=== PATIENT | female | born 1985 | race Caucasian/White ===

== ENCOUNTER 2016-10-31 08:26 | Day surgery (SDC) | payer MEDICARE, MEDICAID ==
[2016-10-25 11:03] LABS: HEMATOCRIT 39.8 % (36.0-47.0); HEMOGLOBIN 12.8 g/dL (12.0-15.5); HGB HCT DIFFERENCE -1.4; MEAN CORPUSCULAR HEMOGLOBIN 26.5 pg (27.0-33.4); MEAN CORPUSCULAR VOLUME 83 fl (80-97); RED BLOOD COUNT 4.82 10^6/uL (3.72-5.28); RED CELL DISTRIBUTION WIDTH 14.6 % (11.5-14.0); WHITE BLOOD COUNT 11.4 10^3/uL (4.0-10.5)
[2016-10-25 11:21] LABS: ANION GAP 12 (5-19); BLOOD UREA NITROGEN 7 mg/dL (7-20); CALCIUM 9.6 mg/dL (8.4-10.2); CARBON DIOXIDE 24 mmol/L (22-30); CHLORIDE 103 mmol/L (98-107); CREATININE RESULT 0.62 mg/dL (0.52-1.25); GLUCOSE 89 mg/dL (75-110); POTASSIUM 4.4 mmol/L (3.6-5.0); SODIUM 139.2 mmol/L (137-145)
[~2016-10-31 08:26] MED LIST: BUPIVACAINE HCL 0.25 % INJ/PF (2.5 MG/1 ML) 30 ML VIAL ONE; CEFAZOLIN 1 GM/D5W RTU 1 GM/50 ML RTUPB IV PRN; LACTATED RINGERS 1000 ML IV PRN; LIDOCAINE 0.5% INJ-PF (5 MG/ML) 50 ML SDV SUBCUT PRN
[2016-10-31] MEDS ORDERED: LIDOCAINE 2% INJ-PF (20 MG/ML) 10 ML AMPUL ONE (10:23)
[2016-10-31] MEDS ORDERED: DEXAMETHASONE SOD PHOSPHATE INJ 4 MG/1 ML VIAL ONE (10:23)
[2016-10-31] MEDS ORDERED: SUCCINYLCHOLINE CHLORIDE INJ 200 MG/10 ML VIAL ONE (10:23)
[2016-10-31] MEDS ORDERED: METOCLOPRAMIDE HCL INJ/PF 10 MG/2 ML SDV ONE (10:23)
[2016-10-31] MEDS ORDERED: KETOROLAC TROMETHAMINE 60 MG/2 ML SDV ONE (10:23)
[2016-10-31] MEDS ORDERED: ONDANSETRON HCL INJ/PF 4 MG/2 ML SDV ONE (10:23)
[2016-10-31] MEDS ORDERED: FENTANYL CITRATE INJ/PF 250 MCG/5 ML AMPULE ONE (12:36)
[2016-10-31] MEDS ORDERED: MIDAZOLAM 2 MG/2 ML INJ ONE (12:36)
[2016-10-31] MEDS ORDERED: DEXMEDETOMIDINE INJ 80 MCG/20 ML VIAL IV ONE (12:37)
[2016-10-31] MEDS ORDERED: ACETAMINOPHEN 100 ML IV ONE (12:37)
[2016-10-31] MEDS ORDERED: PROPOFOL INJ 200 MG/20 ML VIAL IV ONE (12:37)
[2016-10-31] MEDS ORDERED: EPHEDRINE SULFATE INJ 50 MG/1 ML AMPULE ONE (12:37)
[2016-10-31] MEDS ORDERED: MORPHINE SULFATE 10 MG/ML INJ IV PRN (13:29)
[2016-10-31] MEDS ORDERED: ONDANSETRON HCL INJ/PF 4 MG/2 ML SDV IV PRN ×2 (13:29→15:00)
[2016-10-31] MEDS ORDERED: DIPHENHYDRAMINE HCL 50 MG/ML VIAL IV PRN (13:29)
[2016-10-31] MEDS ORDERED: PROMETHAZINE HCL INJ 25 MG/1 ML VIAL IV PRN ×2 (13:29)
[2016-10-31] MEDS ORDERED: FENTANYL CITRATE INJ/PF 100 MCG/2 ML AMPUL IV PRN ×3 (13:29)
[2016-10-31] MEDS ORDERED: MEPERIDINE HCL/PF INJ 25 MG/1 ML DISP.SYRIN IV PRN (13:29)
[2016-10-31] MEDS ORDERED: RINGERS SOLUTION,LACTATED 1,000 ML IV PRN (15:00)
[2016-10-31] MEDS ORDERED: OXYCODONE-ACETAMINOPHEN 5-325 MG TABLET PO PRN (15:00)
--- NOTE | 2016-10-31 15:00 | PDOC DISCHARGE SUMMARY ---
Discharge Summary (SDC) - Discharge Final Diagnosis: Bilateral breast masses Date of Surgery: 10/31/16 Discharge Date: 10/31/16 Condition: Good Treatment or Instructions: Underwent bilateral breast abscesses excision. May discharge the patient home when met discharge criteria. Follow-up with me next week. May shower tomorrow night. Do not remove Steri-Strips. Where firm fitting bra and avoid strenuous activity. Prescriptions: Oxycodone HCl/Acetaminophen [Percocet 5-325 mg Tablet] 1 tab PO ASDIR PRN #25 tablet PRN Reason: Discharge Diet: As Tolerated Discharge Activity: Activity As Tolerated - Stay active but avoid strenuous activity. Report the Following to Your Physician Immediately: Fever over 101 Degrees, Unusual Bleeding, Redness, Drainage-Foul Smelling
--- NOTE | 2016-10-31 16:02 | Operative Report ---
Operative Report DATE OF SURGERY: 10/31/16 PREOPERATIVE DIAGNOSIS: Bilateral breast masses. POSTOPERATIVE DIAGNOSIS: Bilateral breast masses. OPERATION: Excisional biopsy of right breast mass, excisional biopsy of 3 left breast masses. SURGEON: AD FULLER ANESTHESIA: GA TISSUE REMOVED OR ALTERED: 4.5 cm right breast mass at 10 o'clock position. 3.5 cm left breast mass at 10 o'clock position. 2.6 cm left breast mass at 3 o' clock position. 1.2 cm left breast mass at deep 2 o'clock position. COMPLICATIONS: None ESTIMATED BLOOD LOSS: minimal INTRAOPERATIVE FINDINGS: Well-circumscribed the firm smooth mass located at the right breast at the 10 o'clock position, similar feeling mass at the left breast at the 10 o'clock position. Similar but much smaller mass at the left breast at 2 o'clock position. Left breast 3 o'clock position multilobulated firm mass. PROCEDURE: Informed consent was obtained. Patient was brought to the operating room and placed on the operating table in the supine position. After satisfactory induction of general anesthesia patient's bilateral breasts were prepped and draped in usual sterile fashion. At the patient's right breast at the 10 o' clock position there was a 4.5 cm palpable smooth mass a incision was made overlying this lump dissection was carried down and this mass was shelled out without difficulty it was removed intact and submitted to pathology. Hemostasis was achieved with electrocautery the wound was closed with deep dermal interrupted Vicryl sutures followed by running subcuticular Prolene pullout suture. Of note all of the wounds were closed in this fashion. Patient had a palpable similar feeling 3.5 cm lesion at the 10 o'clock position of the left breast. Transverse incision was made overlying this mass and this mass was shelled out without difficulty. Hemostasis appeared excellent the wound was closed as above. Patient had a palpable 2.6 cm mass at the 3 o'clock position of the left breast. Transverse incision was made and this mass was shelled out although it did appear to be attached to deeper fibrous tissue which was removed in continuity with the well-circumscribed but very lobulated complex appearing mass. All of the lesion was entirely excised. But again this lesion appeared different from the other breast masses in its complex multi lobularity with almost grapelike cluster appearance at certain portions of it. Just superior to this mass, at the 2 o'clock position there was a smaller 1.2 cm well- circumscribed the mass which was shelled out without difficulty. Hemostasis appeared excellent. And the wound was closed as above. Marcaine was injected at all of the operative sites at the beginning of the case. Patient tolerated procedure well with no apparent competitions and was taken to the recovery area in stable condition.
[2016-10-31 16:41] VITALS: BP 119/78
== END 2016-10-31 16:42 | disposition home or self-care (01) ==
LOC: OROUT 08:26
PROVIDERS: ATTEND Surgery
PROC: 0HBV0ZX Excision of Bilateral Breast, Open Approach, Diagnostic (ICD-10-PCS; principal; 2016-10-31 11:30)
DX: D24.1 Benign neoplasm of right breast (principal); D24.2 Benign neoplasm of left breast; N60.12 Diffuse cystic mastopathy of left breast; N60.11 Diffuse cystic mastopathy of right breast; I87.2 Venous insufficiency (chronic) (peripheral); E66.9 Obesity, unspecified; Z79.899 Other long term (current) drug therapy; Z68.41 Body mass index [BMI] 40.0-44.9, adult
CPT/HCPCS: 36415; 85027; 81025; 80048; 88305 ×2; 88342; 19120; J2250; J0690; J1100; J1885; J3010; J2765; J0330; J2405; J2704; J3490 ×2; J0131; 400

== ENCOUNTER → 2016-11-06 | Outpatient (CLI) | payer MEDICARE, MEDICAID | LOC: SP 10:06 | PROVIDERS: ATTEND Surgery | DX: M79.606 Pain in leg, unspecified (principal); M79.89 Other specified soft tissue disorders | CPT/HCPCS: 93970 ==

== ENCOUNTER 2017-01-19 14:44 | Emergency (ER) | payer MEDICARE, MEDICAID ==
--- NOTE | 2017-01-19 15:48 | ER Document Report ---
ED Medical Screen (RME) - General Chief Complaint: Palpitations Stated Complaint: CHEST PAIN Time Seen by Provider: 01/19/17 15:39 Notes: The patient is a 31-year-old female, past medical history anxiety, presents with 2 days of intermittent feeling like her heart is racing. She says episode last done a minute and then resolve without any change. She had another episode while in the waiting room. Also with shortness of breath during these episodes. PE: NAD. RRR. CTAB I have greeted and performed a rapid initial assessment of this patient. A comprehensive ED assessment and evaluation of the patient, analysis of test results and completion of the medical decision making process will be conducted by additional ED providers. TRAVEL OUTSIDE OF THE [place] IN LAST 30 DAYS: No - Related Data Allergies/Adverse Reactions: No Known Allergies Allergy (Verified 01/19/17 15:01) Past Medical History - Social History Chew tobacco use (# tins/day): No Drug Abuse: None - Past Medical History Cardiac Medical History: Reports: Hx Coronary Artery Disease - high cholesterol Denies: Hx Heart Attack, Hx Hypertension Pulmonary Medical History: Denies: Hx Asthma, Hx Bronchitis, Hx COPD, Hx Pneumonia Neurological Medical History: Denies: Hx Cerebrovascular Accident, Hx Seizures Renal/ Medical History: Denies: Hx Peritoneal Dialysis Musculoskeltal Medical History: Denies Hx Arthritis - Immunizations Hx Diphtheria, Pertussis, Tetanus Vaccination: Yes Physical Exam - Vital signs Vitals: Temp Pulse Resp BP Pulse Ox 98.1 F 79 16 124/77 97 01/19/17 15:00 01/19/17 15:00 01/19/17 15:00 01/19/17 15:00 01/19/17 15:00 Course - Vital Signs Vital signs: Temp Pulse Resp BP Pulse Ox 98.1 F 79 16 124/77 97 01/19/17 15:00 01/19/17 15:00 01/19/17 15:00 01/19/17 15:00 01/19/17 15:00
[2017-01-19 16:25] LABS: ABSOLUTE EOSINOPHILS # (AUTO) 0.1 10^3/uL (0.0-0.6); ABSOLUTE LYMPHOCYTES (AUTO) 2.8 10^3/uL (0.5-4.7); ABSOLUTE MONOCYTES (AUTO) 0.7 10^3/uL (0.1-1.4); BASOPHILS % (AUTO) 0.5 % (0-2); EOSINOPHILS % (AUTO) 0.5 % (0-6); HEMATOCRIT 39.9 % (36.0-47.0); HEMOGLOBIN 12.7 g/dL (12.0-15.5); HGB HCT DIFFERENCE -1.8; LYMPHOCYTES % (AUTO) 26.5 % (13-45); MEAN CORPUSCULAR HEMOGLOBIN 26.3 pg (27.0-33.4); MEAN CORPUSCULAR HGB CONC 31.9 g/dL (32.0-36.0); MEAN CORPUSCULAR VOLUME 83 fl (80-97); MONOCYTES % (AUTO) 6.4 % (3-13); RED BLOOD COUNT 4.82 10^6/uL (3.72-5.28); RED CELL DISTRIBUTION WIDTH 15.1 % (11.5-14.0); SEGMENTED NEUTROPHILS % (AUTO) 66.1 % (42-78); WHITE BLOOD COUNT 10.5 10^3/uL (4.0-10.5)
[2017-01-19 16:45] LABS: ANION GAP 9 (5-19); BLOOD UREA NITROGEN 11 mg/dL (7-20); CALCIUM 9.8 mg/dL (8.4-10.2); CARBON DIOXIDE 25 mmol/L (22-30); CHLORIDE 105 mmol/L (98-107); CREATINE KINASE 72 U/L (30-135); CREATININE RESULT 0.63 mg/dL (0.52-1.25); GLUCOSE 86 mg/dL (75-110); POTASSIUM 4.6 mmol/L (3.6-5.0); SODIUM 139.3 mmol/L (137-145)
--- NOTE | 2017-01-19 17:13 | EKG REPORT ---
SEVERITY:- BORDERLINE ECG - SINUS RHYTHM BORDERLINE Q WAVES IN INFERIOR LEADS INFERIOR Q WAVES, PROBABLY NORMAL VARIATION : Confirmed by: Rebeka Randhawa MD 19-Jan-2017 17:12:10
--- NOTE | 2017-01-19 18:24 | ER Document Report ---
ED Cardiac - General Mode of Arrival: Ambulatory Information source: Patient TRAVEL OUTSIDE OF THE [place] IN LAST 30 DAYS: No - HPI Patient complains to provider of: Palpitations Associated symptoms: Other - See above <SARTHAK DOW - Last Filed: 01/19/17 18:33> <FELICIANO HERNANDEZ - Last Filed: 01/19/17 21:57> - General Chief Complaint: Palpitations Stated Complaint: palpitations Time Seen by Provider: 01/19/17 15:39 Notes: Patient is a 31 year old female who presents to the emergency department complaining of palpitations. Patient reports that the palpitations occur usually at night and she can feel them when she sleeps. Patient also complains of chest pain with the palpitations and that it sometimes occurs with breathing but is not exacerbated by movement. Patient reports that she used to be on anxiety medications but no longer has them. Patient denies any abnormal physical activity or repetitive movements. Patient also reports right sided abdominal pain. (SARTHAK DOW) - Related Data Allergies/Adverse Reactions: No Known Allergies Allergy (Verified 01/19/17 15:01) Past Medical History - General Information source: Patient - Social History Smoking Status: Never Smoker Chew tobacco use (# tins/day): No Drug Abuse: None Family History: Reviewed & Not Pertinent Patient has suicidal ideation: No Patient has homicidal ideation: No - Past Medical History Cardiac Medical History: Reports: Hx Coronary Artery Disease - high cholesterol Past Surgical History: Reports: Hx Section, Hx Hysterectomy - Immunizations Hx Diphtheria, Pertussis, Tetanus Vaccination: Yes <SARTHAK DOW - Last Filed: 01/19/17 18:33> Review of Systems - Review of Systems Constitutional: No symptoms reported EENT: No symptoms reported Cardiovascular: See HPI, Chest pain, Palpitations Respiratory: No symptoms reported Gastrointestinal: See HPI, Abdominal pain Genitourinary: No symptoms reported Female Genitourinary: No symptoms reported Musculoskeletal: No symptoms reported Skin: No symptoms reported Hematologic/Lymphatic: No symptoms reported Neurological/Psychological: No symptoms reported -: Yes All other systems reviewed and negative <SARTHAK DOW - Last Filed: 01/19/17 18:33> Physical Exam - Vital signs Interpretation: Normal - General General appearance: Appears well, Alert - HEENT Head: Normocephalic, Atraumatic - Respiratory Respiratory status: No respiratory distress Chest status: Tender - Reproducable left sided anterior chest wall tenderness to palpation Breath sounds: Normal Chest palpation: Normal - Cardiovascular Rhythm: Regular Heart sounds: Normal auscultation Murmur: No - Abdominal Inspection: Normal Distension: No distension Bowel sounds: Normal Tenderness: Nontender Organomegaly: No organomegaly - Back Back: Normal, Nontender - Extremities General upper extremity: Normal inspection General lower extremity: Normal inspection - Neurological Neuro grossly intact: Yes Cognition: Normal Orientation: AAOx4 [place] Coma Scale Eye Opening: Spontaneous Dung Coma Scale Verbal: Oriented Dung Coma Scale Motor: Obeys Commands Dung Coma Scale Total: 15 Speech: Normal - Psychological Associated symptoms: Normal affect, Normal mood - Skin Skin Temperature: Warm Skin Moisture: Dry Skin Color: Normal <SARTHAK DOW - Last Filed: 01/19/17 18:33> Course - Laboratory Result Diagrams: 01/19/17 16:10 01/19/17 16:10 <SARTHAK DOW - Last Filed: 01/19/17 18:33> - Laboratory Result Diagrams: 01/19/17 16:10 01/19/17 16:10 - Diagnostic Test Radiology reviewed: Reports reviewed - EKG Interpretation by Mo EKG shows normal: Sinus rhythm Rate: Normal Rhythm: NSR <FELICIANO HERNANDEZ - Last Filed: 01/19/17 21:57> - Re-evaluation Re-evalutation: 01/19/17 Patient with negative workup in the emergency department. Reproducible chest pain. No episodes while she has been here. Stable for discharge. Follow-up with PMD. Return if any worsening or concerning symptoms. Patient agrees with plan. Stable for discharge (FELICIANO HERNANDEZ) - Vital Signs Vital signs: Temp Pulse Resp BP Pulse Ox 97.8 F 79 14 111/69 100 01/19/17 20:00 01/19/17 15:00 01/19/17 20:07 01/19/17 20:07 01/19/17 20:07 - Laboratory Laboratory results interpreted by fl: 01/19/17 16:10 MCH 26.3 L MCHC 31.9 L RDW 15.1 H Discharge <SARTHAK DOW - Last Filed: 01/19/17 18:33> <FELICIANO HERNANDEZ - Last Filed: 01/19/17 21:57> - Discharge Clinical Impression: Atypical chest pain, Palpitations Condition: Stable Disposition: HOME, SELF-CARE Instructions: Palpitations (Irregular or Rapid Heartrate) ([facility]), Chest Pain of Unclear Cause ([facility]) Forms: Return to Work Referrals: JOSE MCCORMACK, [employer] [Primary Care Provider] - Follow up tomorrow Scribe Attestation: 01/19/17 21:57 I personally performed the services described in the documentation, reviewed and edited the documentation which was dictated to the scribe in my presence, and it accurately records my words and actions. (FELICIANO HERNANDEZ) Scribe Documentation - Scribe Written by Lea:: lea Hernandez, 01/19/17, 183 acting as scribe for :: Marcelino <SARTHAK DOW - Last Filed: 01/19/17 18:33>
[2017-01-19 20:17] VITALS: BP 111/69
== END 2017-01-19 20:14 | disposition home or self-care (01) ==
LOC: ER 14:44
DX: R07.9 Chest pain, unspecified (principal); R00.2 Palpitations; R10.9 Unspecified abdominal pain
CPT/HCPCS: 36415; 71275; 80048; 81025; 82550; 84443; 84484; 85025; 93005; 93010; 99285

== ENCOUNTER → 2017-12-30 | Outpatient (CLI) | payer MEDICARE, MEDICAID ==
--- NOTE | 2017-12-30 14:26 | RADIOLOGY REPORT (SQ) ---
EXAM DESCRIPTION: HIP BILATERAL COMPLETED DATE/TIME: 12/30/2017 1:26 pm REASON FOR STUDY: HIP PAIN (M25.559) M25.559 PAIN IN UNSPECIFIED HIP E55.9 VITAMIN D DEFICIENCY, U NSPECIFIED D72.89 OTHER SPECIFIED DISORDERS OF WHITE BLOOD CELLS COMPARISON: CT abdomen pelvis 04/06/2013 NUMBER OF VIEWS: Two views. TECHNIQUE: AP pelvis and additional frog-leg view of the right and left hip. LIMITATIONS: None. FINDINGS: MINERALIZATION: Normal. BILATERAL HIPS: No fracture or dislocation. No worrisome bone lesions. Normal hip joint spaces. No bulky bony spurring. PUBIS AND ISCHIUM: No fracture. PELVIS: No fracture. SACRUM: No fracture or dislocation. No worrisome bone lesions. LOWER LUMBAR SPINE: Unremarkable SOFT TISSUES: No findings. OTHER: No other significant finding. IMPRESSION: NEGATIVE STUDY OF THE RIGHT AND LEFT HIPS AND PELVIS. NO RADIOGRAPHIC EVIDENCE OF ACUTE INJURY. TECHNICAL DOCUMENTATION: JOB ID: [id number] [employer]- All Rights Reserved Reading location - IP/workstation name: [facility]
== END ==
LOC: RAD 13:00
PROVIDERS: ATTEND Nurse Practitioner Family
DX: M25.552 Pain in left hip (principal); M25.551 Pain in right hip; D72.89 Other specified disorders of white blood cells; E55.9 Vitamin D deficiency, unspecified
CPT/HCPCS: 73522

== ENCOUNTER 2018-01-09 07:22 | Outpatient (CLI) | payer MEDICARE, MEDICAID ==
[2018-01-09] MEDS ORDERED: NORMAL SALINE 250 ML IV PRN (07:30)
[2018-01-09] MEDS ORDERED: FERRIC CARBOXYMALTOSE 750 MG in NORMAL SALINE 250 ML IV PRN (07:31)
[2018-01-09 08:57] VITALS: BP 122/65
== END 2018-01-09 09:20 | disposition home or self-care (01) ==
LOC: II 07:22 → 5TH 08:01 → II 09:20
PROVIDERS: ATTEND Internal Medicine
PROC: 3E033GC Introduction of Other Therapeutic Substance into Peripheral Vein, Percutaneous Approach (ICD-10-PCS; principal; 2018-01-09)
DX: D50.9 Iron deficiency anemia, unspecified (principal); K90.9 Intestinal malabsorption, unspecified
CPT/HCPCS: 96367; J7050; J1439; 96365

== ENCOUNTER 2018-01-16 08:46 | Outpatient (CLI) | payer MEDICARE, MEDICAID ==
[~2018-01-16 08:46] MED LIST changes: -BUPIVACAINE HCL 0.25 % INJ/PF (2.5 MG/1 ML) 30 ML VIAL ONE; -CEFAZOLIN 1 GM/D5W RTU 1 GM/50 ML RTUPB IV PRN; +FERRIC CARBOXYMALTOSE 750 MG in NORMAL SALINE 250 ML IV PRN; -LACTATED RINGERS 1000 ML IV PRN; -LIDOCAINE 0.5% INJ-PF (5 MG/ML) 50 ML SDV SUBCUT PRN; +NORMAL SALINE 250 ML IV PRN
[2018-01-16 09:02] VITALS: BP 133/68
== END 2018-01-16 09:58 | disposition home or self-care (01) ==
LOC: II 08:46 → 5TH 08:49 → II 09:58
PROVIDERS: ATTEND Internal Medicine
PROC: 3E033GC Introduction of Other Therapeutic Substance into Peripheral Vein, Percutaneous Approach (ICD-10-PCS; principal; 2018-01-16)
DX: D50.9 Iron deficiency anemia, unspecified (principal); K90.9 Intestinal malabsorption, unspecified
CPT/HCPCS: 96365; 96360; J7050; J1439; 96374